=== PATIENT | female | born 1960 | race Caucasian/White ===

== ENCOUNTER → 2018-01-29 | Outpatient (CLI) | payer OTHER | LOC: BMCIMAGING 09:07 | PROVIDERS: ATTEND Family Medicine | DX: R94.5 Abnormal results of liver function studies (principal); K76.0 Fatty (change of) liver, not elsewhere classified ==

== ENCOUNTER 2018-02-10 13:49 | Emergency (ER) | payer OTHER ==
--- NOTE | 2018-02-10 14:19 | EDPHY ---
H & P Time Seen by Provider: 02/10/18 13:55 HPI/ROS: CHIEF COMPLAINT: Facial numbness and difficulty speaking HISTORY OF PRESENT ILLNESS: Patient woke up at 6:00 a.m. and was in the bed until 10:30 a.m.. She noticed that her right face was weak and numb and not working right when she tried to drink water at 10:00 a.m. Associated with nausea and facial numbness on the right. Symptoms moderate. She also describes some generalized weakness today and relates word- finding difficulty since 10:00 a.m.. She also describes feeling weak and having a little bit of difficulty standing upright like she is just really tired. No syncope. Symptoms not better or worse with anything. REVIEW OF SYSTEMS: Eye: no change in vision, no diplopia ENT: no sore throat Cardiac: no chest pain or syncope Pulmonary: no cough or SOB Abdomen: no vomiting, diarrhea, abdominal pain Musculoskeletal: no back pain or neck pain Skin: no rash Neuro: Right-sided headache behind her right ear for 2 days, chronic left leg neuropathy unchanged. No recent seizure. Constitutional: no fever : no urinary symptoms A comprehensive 10 point review of systems is otherwise negative aside from elements mentioned in the history of present illness. PAST MEDICAL HISTORY: Epilepsy, diabetes, high cholesterol Social history: Former smoker and alcohol user, not current General Appearance: Alert and conversant, cooperative. Eyes: No scleral icterus. Pupils equal reactive extraocular motion intact. ENT, Mouth: Normal mucous membranes. Normal tympanic membranes. No mastoid swelling tenderness or discoloration. Respiratory: Normal respiratory effort, breath sounds equal, lungs are clear to auscultation. Cardiovascular: Regular rate and rhythm. Gastrointestinal: Abdomen is soft and non tender. Neurological: Patient is alert, has right facial droop, the forehead is involved. Normal sediment remediation consultant strength bilaterally and can lift each leg off the bed independently. No clonus. She does feel little bit numb on the right cheek. She has chronic numbness on the left leg from previous neuropathy and decreased sensation there compared to the right but that is old. Orientation normal. No pronator drift. Her right eyelid closes more weekly than the 1 on the left, but she does get full coverage of her cornea. Skin: Warm and dry, no rashes. Musculoskeletal: No peripheral edema. No neck stiffness. Psychiatric: Not agitated. Emergency Department course/MDM: Stroke alert called because the patient also had related by her word- finding difficulties as well since 10:00 a.m. Along with dizziness and apparently some trouble with weakness and numbness in both side of her face. 1420: Negative noncontrast head CT per Dr. Taylor. 1434: Patient had evaluation via telemedicine by Dr. 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 Recommended safe for discharge with outpatient follow-up. Patient strongly prefers no steroids with her diabetes. Referral as an outpatient to neurology. Valtrex discussed and consented. Smoking Status: Former smoker Constitutional: Initial Vital Signs Temperature (C) 36.7 C 02/10/18 13:49 Heart Rate 84 02/10/18 13:49 Respiratory Rate 16 02/10/18 13:49 Blood Pressure 140/77 H 02/10/18 13:49 O2 Sat (%) 97 02/10/18 13:49 O2 Delivery Mode Room Air Allergies/Adverse Reactions: codeine Allergy (Verified 02/10/18 13:57) furinol Allergy (Uncoded 02/10/18 13:58) Home Medications: Medication Instructions Recorded Valacyclovir HCl [Valtrex] 1,000 mg PO TID #21 tab 02/10/18 Medical Decision Making - Diagnostics EKG Interpretation: 12 lead EKG performed for neurologic symptoms, complete reading in [place]; sinus rhythm rate 67 with normal intervals and no ischemic changes. Imaging Results: Imaging Impressions Head CT 02/10/18 14:05 Impression: Head CT within normal limits. No hemorrhage identified. Results called to Dr. Caruso at 14: 20 p.m. Final results are concordant with the initial interpretation. General information for patients regarding this examination can be found at [email or web address]. If you have questions or comments about this report, please contact me at [phone] (hospital) or [phone] (cell). Imaging: Discussed imaging studies w/ lens generating machine tender Radiologist Differential Diagnosis: Differential considered including but not limited to Tam palsy, vascular dissection, ischemic stroke, intracranial mass or bleed. - Data Points Laboratory Results: Laboratory Results 02/10/18 14:10 02/10/18 14:10 02/10/18 02/10/1802/10/18 14:15 14:10 14:10 WBC 9.72 10^3/uL H 10^3/uL (3.80-9.50) RBC 4.45 10^6/uL 10^6/uL (4.18-5.33) Hgb 13.7 g/dL g/dL (12.6-16.3) POC Hgb 14.3 gm/dL gm/dL (12.6-16.3) Hct 40.2 % % (38.0-47.0) POC Hct 42 % % (38-47) MCV 90.3 fL fL (81.5-99.8) MCH 30.8 pg pg (27.9-34.1) MCHC 34.1 g/dL g/dL (32.4-36.7) RDW 12.1 % % (11.5-15.2) Plt Count 418 10^3/uL H 10^3/uL (150-400) MPV 9.3 fL fL (8.7-11.7) Neut % (Auto) 61.6 % % (39.3-74.2) Lymph % (Auto) 24.8 % % (15.0-45.0) [place] % (Auto) 10.8 % % (4.5-13.0) Eos % (Auto) 2.0 % % (0.6-7.6) Baso % (Auto) 0.5 % % (0.3-1.7) Nucleat RBC Rel Count 0.0 % % (0.0-0.2) Absolute Neuts (auto) 5.99 10^3/uL 10^3/uL (1.70-6.50) Absolute Lymphs (auto) 2.41 10^3/uL 10^3/uL (1.00-3.00) Absolute Monos (auto) 1.05 10^3/uL H 10^3/uL (0.30-0.80) Absolute Eos (auto) 0.19 10^3/uL 10^3/uL (0.03-0.40) Absolute Basos (auto) 0.05 10^3/uL 10^3/uL (0.02-0.10) Absolute Nucleated RBC 0.00 10^3/uL 10^3/uL (0-0.01) Immature Gran % 0.3 % % (0.0-1.1) Immature Gran # 0.03 10^3/uL 10^3/uL (0.00-0.10) POC Sodium 140 mEq/L mEq/L (135-145) Sodium 139 mEq/L mEq/L (135-145) POC Potassium 4.3 mEq/L mEq/L (3.3-5.0) Potassium 4.8 mEq/L mEq/L (3.3-5.0) POC Chloride 104 mEq/L mEq/L (97-110) Chloride 104 mEq/L mEq/L (97-110) Carbon Dioxide 22 mEq/l mEq/l (22-31) Anion Gap 13 mEq/L mEq/L (6-14) POC BUN 17 mg/dL mg/dL (7-23) BUN 14 mg/dL mg/dL (7-23) Creatinine 0.7 mg/dL mg/dL (0.6-1.0) POC Creatinine 0.7 mg/dL mg/dL (0.6-1.0) Estimated GFR > 60 Glucose 104 mg/dL H mg/dL (70-100) POC Glucose 109 mg/dL H mg/dL (70-100) Calcium 10.3 mg/dL mg/dL (8.5-10.4) Point of Care Test Results: Chemistry 02/10/18 14:15 POC Sodium 140 mEq/L mEq/L (135-145) POC Potassium 4.3 mEq/L mEq/L (3.3-5.0) POC Chloride 104 mEq/L mEq/L (97-110) POC BUN 17 mg/dL mg/dL (7-23) POC Creatinine 0.7 mg/dL mg/dL (0.6-1.0) POC Glucose 109 mg/dL H mg/dL (70-100) ISTAT H&H 02/10/18 14:15 POC Hgb 14.3 gm/dL gm/dL (12.6-16.3) POC Hct 42 % % (38-47) Departure - Departure Disposition: Home, Routine, Self-Care Clinical Impression: Tam's palsy Condition: Good Instructions: Tam Palsy (ED) Additional Instructions: You had telemedicine evaluation by Dr. Sarkar from [place] [facility]. The recommendation is to treat you for Tam Palsy with anti-viral medication. The brand sales consultant neurologist did not think it was likely that you were having a stroke. Referrals: Alberto Em MD [Medical Doctor] - As per Instructions (Please follow-up next week with this neurologist.) Prescriptions: Valacyclovir HCl [Valtrex] 1,000 mg PO TID #21 tab
[2018-02-10 14:39] LABS: PLATELET COUNT 418 10^3/uL (150-400)
[2018-02-10 14:54] VITALS: BP 136/84
--- NOTE | 2018-02-10 15:00 | CPEKG ---
Test Reason : OPEN Blood Pressure : / mmHG Vent. Rate : 067 BPM Atrial Rate : 069 BPM P-R Int : 150 ms QRS Dur : 084 ms QT Int : 395 ms P-R-T Axes : 017 042 037 degrees QTc Int : 417 ms Sinus rhythm Confirmed by Sigifredo Herr ([id number]) on 02/10/2018 3:00:02 PM Referred By: Confirmed By:Sigifredo Herr
== END 2018-02-10 15:22 | disposition home or self-care (01) ==
DX: G51.0 Bell's palsy (principal); G40.909 Epilepsy, unspecified, not intractable, without status epilepticus; G62.9 Polyneuropathy, unspecified; E11.9 Type 2 diabetes mellitus without complications; Z87.891 Personal history of nicotine dependence
CPT/HCPCS: 82435-PO; 82565-PO; 82947-PO; 84132-PO; 84295-PO; 84520-PO; 85014-PO